=== PATIENT | female | born 1940 | race Caucasian/White ===

== ENCOUNTER 2023-12-04 09:18 | Day surgery (SDC) | payer MEDICARE ==
[2023-12-04] MEDS ORDERED: Sodium Chloride 0.9(Preservative Free) 10 ML IJ ONE (09:19)
[2023-12-04] MEDS ORDERED: Decadron 4 MG INJ IV ONE (09:19)
[2023-12-04] MEDS ORDERED: DIPRIVAN 200 MG/20 ML IV ONE (11:08)
--- NOTE | 2023-12-04 12:33 | XRAY ---
Indication: Right L3-L5 transforaminal TIRSO. Intraoperative fluoroscopy provided for 2 seconds. 4 digital spot image submitted for interpretation demonstrates posterior needle tips projecting over the expected right L3 and L4 nerve roots. Small amount of contrast injected for needle tip placement. Correlate with interoperative findings/report.
--- NOTE | 2023-12-04 12:37 | XRAY ---
2 seconds of fluoroscopy was used in surgery for a right L3-L5 transforaminal TIRSO.
[2023-12-04] MEDS ORDERED: Lactated Ringers 1,000 ML IV ONE (13:12)
== END 2023-12-04 11:40 | disposition home or self-care (01) ==
LOC: SDC-PAIN 09:18
PROVIDERS: ATTEND Psychiatry & Neurology Pain Medicine
DX: M54.16 Radiculopathy, lumbar region (principal); E11.9 Type 2 diabetes mellitus without complications
CPT/HCPCS: 64483; 64484; 72100; 77003; 82947; J1100; J2704; Q9966